=== PATIENT | male | born 1960 | race Caucasian/White ===

== ENCOUNTER 2020-09-05 08:35 | Day surgery (SDC) | payer BC ==
[2020-08-29 12:42] LABS: BASOPHILS # (AUTO) 0.1 X10'3 (0-0.2); BASOPHILS % (AUTO) 1.2 % (0-1); EOSINOPHILS # (AUTO) 0.3 X10'3 (0-0.9); EOSINOPHILS % (AUTO) 4.5 % (0-6); LYMPHOCYTES # (AUTO) 1.6 X10'3 (1.1-4.8); LYMPHOCYTES % (AUTO) 25.5 % (21-51); MEAN CORPUSCULAR HEMOGLOBIN 34.2 PG (27.0-31.0); MEAN CORPUSCULAR HGB CONC 34.6 g/dL (33.0-36.5); MEAN CORPUSCULAR VOLUME 98.6 FL (78-98); MEAN PLATELET VOLUME 9.3 FL (7.4-10.4); MONOCYTES # (AUTO) 0.7 X10'3 (0-0.9); NEUTROPHILS # (AUTO) 3.7 X10'3 (1.8-7.7); NEUTROPHILS % (AUTO) 57.8 % (42-75); PRE OP HEMOGLOBIN 15.6 g/dL (14.0-17.9); PRE OP PLATELET COUNT 228 X10'3 (140-440); RED BLOOD COUNT 4.57 X10'6 (4.70-6.10); RED CELL DISTRIBUTION WIDTH 13.3 % (11.5-14.5)
[2020-08-29 12:53] LABS: PRE OP INR 1.1 INR; PRE OP PROTIME 11.2 SECONDS (9.0-12.0)
[2020-08-29 12:58] LABS: ALBUMIN 3.5 G/DL (3.4-5.0); ALKALINE PHOSPHATASE 70 IU/L (46-116); BLOOD UREA NITROGEN 16 MG/DL (7-18); BUN/CREATININE RATIO 19.5 (5.4-32.0); CALCIUM 8.5 MG/DL (8.5-10.1); CHLORIDE 104 MMOL/L (99-107); CREATININE 0.82 MG/DL (0.60-1.10); PRE OP ALT 37 U/L (30-65); PRE OP ANION GAP 8 (8-16); PRE OP AST 27 U/L (10-37); PRE OP BILIRUB, TOTAL 1.1 MG/DL (0.0-1.0); PRE OP GLUCOSE 94 MG/DL (70-104); PRE OP POTASSIUM 4.3 MMOL/L (3.4-5.1); PRE OP SODIUM 141 MMOL/L (135-145); TOTAL CARBON DIOXIDE 29.1 MMOL/L (24-32); TOTAL PROTEIN 7.1 G/DL (6.4-8.2); eGFR > 90 ML/MIN
[~2020-09-05] VITALS: Ht 177.8 cm; Wt 114.4 kg
[2020-09-05] VITALS (8 sets, daily range): BP systolic 119–154; BP diastolic 75–94
[~2020-09-05 08:35] MED LIST: CHOL100040 PO; DIPH25CA83 PO; LIDOcaine 1% W/epiNEPHrine 1:100,000 20ml vial ONE; cefTAZidime 1gm inj ONE; cocaine 4% topical solution 4ml bottle ONE; famotidine 20mg tablet PO ONE; mupirocin 2% ointment 22GM ONE; oxymetazoline 15 ML nasal spray NS ONE; oxymetazoline 15 ML nasal spray NS SCH; ringers solution, lacted 1,000 ML IV SCH
[2020-09-05] MEDS ORDERED: DIAZ5TAB PO (09:37)
[2020-09-05] MEDS ORDERED: fentaNYL/PF 50MCG/1 ML 2ML syringe ONE ×2 (09:52→10:21)
[2020-09-05] MEDS ORDERED: midazolam 1 mg/ML 2ml injection ONE (09:52)
[2020-09-05] MEDS ORDERED: propofol inj 20 ML IV ONE (09:54)
[2020-09-05] MEDS ORDERED: LIDOcaine 2% (20mg/ml) 5ml vial ONE (09:54)
[2020-09-05] MEDS ORDERED: sevoflurane 250ml liquid IH ONE (10:00)
[2020-09-05] MEDS ORDERED: meperidine/PF 25mg/ml syringe IV PRN ×3 (10:50)
[2020-09-05] MEDS ORDERED: morphine 4 MG/ML inj SYRINge IV PRN (10:50)
[2020-09-05] MEDS ORDERED: hydrALAZINE 20mg/ml inj. IV PRN (10:50)
[2020-09-05] MEDS ORDERED: ringers solution, lacted 1,000 ML IV SCH (10:50)
[2020-09-05] MEDS ORDERED: morphine 2 MG/ML inj. syringe IV PRN (10:50)
[2020-09-05] MEDS ORDERED: labetalol 5mg/ml 20ml inj. IV PRN (10:50)
[2020-09-05] MEDS ORDERED: ondansetron/PF 4mg/2ml inj IV PRN (10:50)
[2020-09-05] MEDS ORDERED: ondansetron/PF 4mg/2ml inj ONE (11:11)
[2020-09-05] MEDS ORDERED: dexamethasone sod phosphate 4mg/ml inj. ONE (11:11)
[2020-09-05] MEDS ORDERED: acetaminophen 1,000mg/100ml IV 100 ML IV ONE (11:40)
[2020-09-05] MEDS ORDERED: meperidine/PF 25mg/ml syringe ONE (11:52)
--- NOTE | 2020-09-05 11:52 | NUR ---
Received from OR via , accompanied by Anesthesiologist DR ESCOBAR and report given by Anesthesiolgist. AWAKENS TO VOICE. VITALS STABLE. DRESSINGS DI. KING PAIN.
[2020-09-05] MEDS ORDERED: salt irrigation nasal spray 45 ML SPRAY NS PRN (12:35)
--- NOTE | 2020-09-05 13:12 | NUR ---
AWAKE AND ORIENTED. VITALS STABLE. DRESSING DI. KING PAIN. HOME WITH HIS AT THIS TIME.
== END 2020-09-05 13:12 | disposition home or self-care (01) ==
LOC: PAS 08:35 → EDBD 10:15 → PAS 13:12
PROVIDERS: ATTEND Otolaryngology
DX: J34.2 Deviated nasal septum (principal); J34.3 Hypertrophy of nasal turbinates; J32.8 Other chronic sinusitis; J34.89 Other specified disorders of nose and nasal sinuses; E66.9 Obesity, unspecified; Z68.36 Body mass index [BMI] 36.0-36.9, adult; Z79.01 Long term (current) use of anticoagulants; Z79.899 Other long term (current) drug therapy; Z72.89 Other problems related to lifestyle; Z87.891 Personal history of nicotine dependence
CPT/HCPCS: 30140; 30520; 31240; 31255; 31267; 36415; 61782; 71046; 80053; 82948; 85025; 85576; 85610; 85730; 93005; A6402; C9250; J0131; J0713; J1100; J2001; J2175; J2250; J2405; J2704; J3010; J7040; J7120; A4618; A7000; J3490